=== PATIENT | male | born 1945 | race Caucasian/White ===

== ENCOUNTER 2022-09-14 08:04 | Day surgery (SDC) | payer MEDICARE, BC ==
[2022-09-13 15:25] LABS: CLARITY,URINE CLEAR (Clear); COLOR,URINE YELLOW (Yellow); GLUCOSE, URINE NEGATIVE (Neg); KETONES,URINE NEGATIVE (Neg); LEUKOCYTE ESTERASE ,URINE TRACE (Neg); NITRITES, URINE NEGATIVE (Neg); OCCULT BLOOD,URINE NEGATIVE (Neg); PROTEIN,URINE NEGATIVE (Neg); UROBILINOGEN,URINE 0.2 E.U/dL (0.2-1.0)
[2022-09-13 15:25] LABS: BASOPHILS # (AUTO) 0.1 X10'3 (0-0.2); BASOPHILS % (AUTO) 0.9 % (0-1); EOSINOPHILS # (AUTO) 0.3 X10'3 (0-0.9); EOSINOPHILS % (AUTO) 5.7 % (0-6); LYMPHOCYTES # (AUTO) 0.9 X10'3 (1.1-4.8); LYMPHOCYTES % (AUTO) 15.6 % (21-51); MEAN CORPUSCULAR HEMOGLOBIN 24.2 PG (27.0-31.0); MEAN CORPUSCULAR HGB CONC 31.6 g/dL (33.0-36.5); MEAN CORPUSCULAR VOLUME 76.6 FL (78-98); MEAN PLATELET VOLUME 6.5 FL (7.4-10.4); MONOCYTES # (AUTO) 0.5 X10'3 (0-0.9); MONOCYTES % (AUTO) 8.6 % (2-12); NEUTROPHILS # (AUTO) 4.1 X10'3 (1.8-7.7); NEUTROPHILS % (AUTO) 69.2 % (42-75); PRE OP HEMATOCRIT 34.5 % (42.0-52.0); PRE OP PLATELET COUNT 364 X10'3 (140-440); RED BLOOD COUNT 4.51 X10'6 (4.70-6.10); RED CELL DISTRIBUTION WIDTH 22.9 % (11.5-14.5)
[2022-09-13 15:27] LABS: PRE OP HEMOGLOBIN 10.9 g/dL (14.0-17.9)
[2022-09-13 15:37] LABS: RBC,URINE 0-2 /HPF (0-2); UA COLLECTION TYPE VOIDED; WBC,URINE 0-4 /HPF (0-4)
[2022-09-13 15:38] LABS: BACTERIA,URINE FEW /HPF (Neg); SQUAMOUS EPITHELIAL CELL,UR FEW /LPF (FEW)
[2022-09-13 15:45] LABS: ALBUMIN 3.7 G/DL (3.4-5.0); ALBUMIN/GLOBULIN RATIO 0.9 (1.1-1.5); ALKALINE PHOSPHATASE 93 IU/L (46-116); BLOOD UREA NITROGEN 12 MG/DL (7-18); BUN/CREATININE RATIO 13.2 (5.4-32.0); CALCIUM 9.2 MG/DL (8.5-10.1); CHLORIDE 100 MMOL/L (99-107); CREATININE 0.91 MG/DL (0.60-1.10); PRE OP ALT 16 U/L (30-65); PRE OP ANION GAP 8 (8-16); PRE OP AST 17 U/L (10-37); PRE OP BILIRUB, TOTAL 0.2 MG/DL (0.0-1.0); PRE OP GLUCOSE 104 MG/DL (70-104); PRE OP POTASSIUM 3.9 MMOL/L (3.4-5.1); PRE OP SODIUM 139 MMOL/L (135-145); eGFR 81 ML/MIN
[2022-09-13 15:50] LABS: ANISOCYTOSIS 2+; PLATELET ESTIMATE NORMAL; POIKILOCYTOSIS FEW
[2022-09-13 15:51] LABS: ELLIPTOCYTES 1+
[~2022-09-14] VITALS: Ht 175.3 cm; Wt 90.6 kg
[2022-09-14] VITALS (7 sets, daily range): BP systolic 131–172; BP diastolic 63–83
[~2022-09-14 08:04] MED LIST: AMLO5TAB16 PO; GLIM2TAB6 PO; HYDR12.55 PO; METF-438 PO; RAMI10CA69 PO; RIVA20TA PO; ceFAZolin inj. 2,000 MG in dextrose 5%-water 100 ML IV ONE; famotidine 20mg tablet PO ONE; ringers solution, lacted 1,000 ML IV SCH
--- NOTE | 2022-09-14 08:15 | NUR ---
prepped pt for surgery, iv started in right forearm by kaushik 2 attempts by me. pt and instructed on pre op education. mild redness noted at the distal end of the midline incision above the umbilicus. red, warm to touch,
--- NOTE | 2022-09-14 08:20 | NUR ---
abdomen shaved and wiped down by May hernándezrk
[2022-09-14] MEDS ORDERED: hydrALAZINE 20mg/ml inj. IV PRN (10:55)
[2022-09-14] MEDS ORDERED: morphine 2 MG/ML inj. syringe IV PRN (10:55)
[2022-09-14] MEDS ORDERED: fentaNYL/PF 50MCG/1 ML 2ML syringe IV PRN ×2 (10:55)
[2022-09-14] MEDS ORDERED: ondansetron/PF 4mg/2ml inj IV PRN (10:55)
[2022-09-14] MEDS ORDERED: labetalol 20mg/4ml (5mg/ml) syringe IV PRN (10:55)
[2022-09-14] MEDS ORDERED: ringers solution, lacted 1,000 ML IV SCH (10:55)
[2022-09-14] MEDS ORDERED: morphine 4 MG/ML inj SYRINge IV PRN (10:55)
[2022-09-14] MEDS ORDERED: bacitracin 15gm ointment TP ONE (11:35)
[2022-09-14] MEDS ORDERED: sevoflurane 250ml liquid IH ONE (12:02)
[2022-09-14] MEDS ORDERED: midazolam 1 mg/ML 2ml injection ONE (12:09)
[2022-09-14] MEDS ORDERED: LIDOcaine 2% (20mg/ml) 5ml vial ONE (12:09)
[2022-09-14] MEDS ORDERED: propofol inj 20 ML IV ONE (12:09)
[2022-09-14] MEDS ORDERED: ondansetron/PF 4mg/2ml inj ONE (12:15)
[2022-09-14] MEDS ORDERED: ePHEDrine 50MG/ML INJ. ONE (12:20)
--- NOTE | 2022-09-14 12:57 | NUR ---
Received from OR via , accompanied by Anesthesiologist JUDSON and OR NURSE. report given by Anesthesiolgist. PT IS DROWSY YET RESPONDS TO VERBAL STIMULI. VSS. INCISION DRESSING WITH SLIGHT DRAINAGE. PT EVAN PAIN OR DISCOMFORT. Addendum: 09/14/22 at 1325 by Silke Ram RN Amended: Links added.
--- NOTE | 2022-09-14 14:07 | NUR ---
I HAVE REVIEWED D/C INSTRUCTIONS WITH PATIENT AND THEY HAVE VERBALIZED UNDERSTANDING OF INSTRUCTIONS. PATIENT D/C HOME WITH ALL BELONGINGS AND FAMILY GAVE TRANSPORT Addendum: 09/14/22 at 1432 by Silke Ram RN Amended: Links added.
== END 2022-09-14 14:07 | disposition home or self-care (01) ==
LOC: PAS 08:04
PROVIDERS: ATTEND Surgery
DX: T81.40XA Infection following a procedure, unspecified, initial encounter (principal); E11.9 Type 2 diabetes mellitus without complications; I10 Essential (primary) hypertension; I48.91 Unspecified atrial fibrillation; Z88.8 Allergy status to other drugs, medicaments and biological substances; Z88.1 Allergy status to other antibiotic agents; Z85.038 Personal history of other malignant neoplasm of large intestine; Z85.118 Personal history of other malignant neoplasm of bronchus and lung; Z98.890 Other specified postprocedural states; Z79.84 Long term (current) use of oral hypoglycemic drugs; Z79.899 Other long term (current) drug therapy; Z79.01 Long term (current) use of anticoagulants; Y83.8 Other surgical procedures as the cause of abnormal reaction of the patient, or of later complication, without mention of misadventure at the time of the procedure
CPT/HCPCS: 10180; 36415; 80053; 81001; 82948; 85025; 87070; 87075; 87077; 87088; 87102; 87186; 93005; J0690; J2250; J2405; J2704; J3490; J7030; J7060; J7120; Z7506; Z7512; 85008; A4618; A7000